=== PATIENT | female | born 1995 | race Caucasian/White ===

== ENCOUNTER 2018-01-31 08:42 | Day surgery (SDC) | payer BC ==
[2018-01-31] MEDS ORDERED: diphenhydrAMINE 50 MG/ML VIAL ONE (09:30)
[2018-01-31 09:31] LABS: #Basophils 0.1 thou/uL (0.0-0.2); #Eosinphils 0.1 thou/uL (0.0-0.7); #Lymphocytes 1.4 thou/uL (1.20-3.40); #Monocytes 0.4 thou/uL (0.11-0.59); #Neutrophils 6.4 thou/uL (1.40-6.50); %Basophils 0.8 % (0.0-1.0); %Eosinophils 0.7 % (0.0-10.0); %Lymphocytes 17.1 % (21.0-51.0); %Neutrophils 76.4 % (42.0-75.0); Hemoglobin 11.5 g/dL (12.0-16.0); Mean Corpuscular HGB CONC 34.6 g/dL (32.0-36.0); Mean Corpuscular Hemoglobin 29.9 pg (27.0-31.0); Mean Corpuscular Volume 86.4 fl (81.0-99.0); Mean Platelet Volume 9.6 fL (7.4-10.4); Platelet Count 190 thou/uL (130-400); RBC Distribution Width 11.6 % (11.5-14.5); Red Blood Cell (RBC) Count 3.84 mill/uL (4.20-5.40); White Blood Cell (WBC) Count 8.3 thou/uL (4.8-10.8)
[2018-01-31 09:46] LABS: ALT (SGPT) 14 U/L (8-55); AST (SGOT) 15 U/L (5-34); Albumin 3.5 g/dL (3.5-5.0); Alkaline Phosphatase 60 U/L (40-150); Anion Gap 13 mmol/L (10-20); BUN (Urea Nitrogen) 6 mg/dL (7.0-18.7); Bilirubin, Total 0.2 mg/dL (0.2-1.2); Calc. Creatinine Clearance 0 mL/min (70-130); Calcium 8.7 mg/dL (7.8-10.44); Carbon Dioxide 20 mmol/L (22-29); Chloride 107 mmol/L (98-107); Estimated GFR-MDRD Greater than 90; Globulin 2.8 g/dL (2.4-3.5); Glucose 98 mg/dL (70-105); Lipase 19 U/L (8-78); Potassium 3.4 mmol/L (3.5-5.1); Protein, Total 6.3 g/dL (6.0-8.3); Sodium 137 mmol/L (136-145)
[2018-01-31 10:54] VITALS: BP 121/56; TEMP 98.9; BMI 26.9
[2018-01-31] MEDS ORDERED: Lidocaine 2% Viscous Solution 10 ML, Aluminum & Magnesium Hydroxide 30 ML SSW SCH ×2 (12:00)
--- NOTE | 2018-01-31 12:11 | PRG ---
DATE OF SERVICE: 01/31/2018 OB ER ENCOUNTER PRIMARY OB: Out of town in [place]. CHIEF COMPLAINT: Nausea, vomiting, abdominal pain. HISTORY OF PRESENT ILLNESS: The patient is a 22-year-old G3, P2 female with an intrauterine pregnanc y at 24 weeks who is in town for the . Patient reports that she woke up this morning w ith a sharp epigastric pain that prompted several episodes of vomiting. The patient reports that the vomiting relieved some of her pain and discomfort, but has come here for evaluation. The patient do es admit she was up about 4 in the morning, eating various kinds of snack foods and other foods such as crayfish, shrimp, chips and dips and hotdogs. The patient reports currently her pain is much bett er. She denies any uterine contractions. She denies vaginal bleeding. She denies fever or illness. She does report she had some diarrhea yesterday after time of constipation. 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 PAST MEDICAL HISTORY: Negative. PAST SURGICAL HISTORY: Includes liposuction. ALLERGIES: AZITHROMYCIN. MEDICATIONS: vitamins. SOCIAL HISTORY: Denies drug, alcohol or tobacco use. REVIEW OF SYSTEMS: Patient denies fever, fall. She reports periodic headaches with the . Reports some chest pain, shortness of breath, nausea and vomiting with the episodes this morning, but has since resolved. Denies constipation. Reports had an episode of constipation recently with tere hamilton to follow. Denies any current rashes. Denies any vaginal bleeding or leakage of significant fl uid. She is having discharge that has been going for several weeks, so she is planning on consulting with her OB tomorrow. She denies any urinary urgency. PHYSICAL EXAMINATION: VITAL SIGNS: Blood pressure 121/56, heart rate of 90, respiratory rate of 18, satting 100% on room a ir, and temperature 98.9. GENERAL: She appears to be in no acute distress. She is alert and oriented, cooperative and pleasan t to interact with. HEAD: Normocephalic, atraumatic. LUNGS: Clear to auscultation bilaterally. HEART: Has regular rate and rhythm. ABDOMEN: Soft. She has little bit of epigastric discomfort, but mild and she has no suprapubic tend erness. No lower pelvic tenderness or other abdominal tenderness. EXTREMITIES: Nontender, nonedematous. GENITOURINARY: Exam has been deferred. heart tracing demonstrates a baseline in the 130s with moderate long-term variability, appropriate for 24-week gestation. LABORATORY DATA: Laboratory work has been ordered from the ER evaluation demonstrating white count o f 8.3, hemoglobin of 11.5, hematocrit 33.2, and platelets of 190,000. Sodium of 137, potassium of 3. 4, chloride of 107, BUN of 6, creatinine of 0.48, calcium of 8.7, and glucose of 98. LFTs within nor mal limits. Lipase of 19. ASSESSMENT AND PLAN: The patient is a 22-year-old female with an intrauterine at 24 weeks who has experienced episodic nausea, vomiting and abdominal pain, likely secondary to a night full of eating and she is feeling much better now after vomiting. We are giving her a GI cocktail to see if the remaining discomfort will resolve and the patient will be discharged home. She has no evidence of labor. Fetus is reassuring. She has an appointment to follow up with her OB tomorrow.
== END 2018-01-31 12:35 | disposition home or self-care (01) ==
LOC: SCSER 08:42 → L&D/OP 10:33
PROVIDERS: ATTEND Obstetrics & Gynecology
DX: O99.89 Other specified diseases and conditions complicating pregnancy, childbirth and the puerperium (principal); R11.2 Nausea with vomiting, unspecified; R10.9 Unspecified abdominal pain; Z3A.24 24 weeks gestation of pregnancy; Z79.899 Other long term (current) drug therapy; Z88.1 Allergy status to other antibiotic agents
CPT/HCPCS: 80053; 83690; 85025; J1200

== ENCOUNTER 2020-10-30 21:22 | Emergency (ER) | payer SELFPAY | END 2020-10-30 23:41 | disposition home or self-care (01) | LOC: ERS 21:22 | DX: J02.9 Acute pharyngitis, unspecified (principal); J45.909 Unspecified asthma, uncomplicated | CPT/HCPCS: 99281 ==

== ENCOUNTER 2021-05-12 17:41 | Observation (INO) | payer OTHER, SELFPAY ==
[~2021-05-12 17:41] MED LIST: Iopamidol-370 76% 500 ML 1 ML ONE
[2021-05-12] MEDS ORDERED: Acetaminophen 500 MG TAB ONE (18:18)
[2021-05-12 18:21] LABS: #Lymphocytes 1.7 thou/uL (1.20-3.40); #Neutrophils 8.9 thou/uL (1.40-6.50); %Basophils 0.3 % (0.0-1.0); %Lymphocytes 14.9 % (21.0-51.0); %Monocytes 8.5 % (0.0-10.0); %Neutrophils 76.2 % (42.0-75.0); Hemoglobin 12.4 g/dL (12.0-16.0); Mean Corpuscular HGB CONC 33.5 g/dL (32.0-36.0); Mean Corpuscular Hemoglobin 30.7 pg (27.0-31.0); Mean Corpuscular Volume 91.6 fL (78.0-98.0); Platelet Count 222 thou/uL (130-400); Red Blood Cell (RBC) Count 4.04 mill/uL (4.20-5.40); White Blood Cell (WBC) Count 11.6 thou/uL (4.8-10.8)
[2021-05-12 18:22] LABS: BHCG - Serum Negative (NEGATIVE); Pregs Control Background? CLEAR/WHITE (CLR/WHITE); Pregs Control Bar Appear? YES (CONTROL BAR)
[2021-05-12 18:32] LABS: INR-International Normal Ratio 1.1; PTT 30.9 sec (22.9-36.1); Prothrombin Time 14.4 sec (12.0-14.7)
[2021-05-12 18:43] LABS: ALT (SGPT) 15 U/L (8-55); AST (SGOT) 16 U/L (5-34); Albumin 4.6 g/dL (3.5-5.0); Alkaline Phosphatase 66 U/L (40-110); Anion Gap 14 mmol/L (10-20); BUN (Urea Nitrogen) 7 mg/dL (7.0-18.7); Bilirubin, Total 0.8 mg/dL (0.2-1.2); Calc. Creatinine Clearance 0 mL/min (70-130); Calcium 9.7 mg/dL (7.8-10.44); Carbon Dioxide 24 mmol/L (22-29); Chloride 99 mmol/L (98-107); Globulin 3.5 g/dL (2.4-3.5); Glucose 104 mg/dL (70-105); Lipase 15 U/L (8-78); Potassium 3.6 mmol/L (3.5-5.1); Protein, Total 8.1 g/dL (6.0-8.3); Sodium 133 mmol/L (136-145)
[2021-05-12 19:44] LABS: Bacteria/HPF 4+ HPF (None Seen); Bilirubin Negative (Negative); Blood, Urine Negative (Negative); Clarity Turbid (Clear); Glucose, Urine (Dipstick) Normal (Negative); Ketone, Urine Negative (Negative); Leukocyte 500 Leu/uL (Negative); Nitrite 2+ (Negative); Protein, Urine (Dipstick) 10 mg/dL (Neg-Trace); RBC/HPF 0-3 HPF (0-3); Renal Epithelial 0-3 HPF (None Seen); Specific Gravity, Urine 1.023 (1.002-1.036); Urobilinogen Normal mg/dL (Less than 2); WBC/HPF Greater than 50 HPF (0-3); pH, Urine 7.5 (5.0-9.0)
[2021-05-12] MEDS ORDERED: cefTRIAXone\\ROCEPHIN 1 GM VIAL ONE (20:16)
[2021-05-12 20:23] LABS: SARS-CoV-2 NAA Rapid Test Not Detected (NotDetected)
[2021-05-12] MEDS ORDERED: Vancomycin 1 GM/200 ML BAG ONE (20:56)
[2021-05-12] MEDS ORDERED: diphenhydrAMINE 50 MG/ML VIAL ONE (21:53)
[2021-05-12 23:54] VITALS: BMI 27.8
[2021-05-13] MEDS ORDERED: Acetaminophen 325 MG TAB PO PRN (01:15)
[2021-05-13] MEDS ORDERED: Sodium Chloride 0.9% 1,000 ML IV SCH ×3 (01:15→08:30)
[2021-05-13] MEDS ORDERED: Ondansetron ODT 4 MG TAB SL PRN (01:15)
[2021-05-13] MEDS ORDERED: Ondansetron PF 4 MG/2 ML Vial IVP PRN ×2 (01:15→02:27)
[2021-05-13] MEDS ORDERED: Albuterol Sulfate 2.5 mg/3 ml Neb NEB PRN (02:33)
[2021-05-13] MEDS: Cefepime 2 GM in Sodium Chloride 0.9% 100 ML IVPB SCH ×2 (02:54→15:22)
[2021-05-13 05:43] LABS: #Neutrophils 6.2 thou/uL (1.40-6.50); %Basophils 0.4 % (0.0-1.0); %Eosinophils 0.1 % (0.0-10.0); %Lymphocytes 21.9 % (21.0-51.0); %Monocytes 10.9 % (0.0-10.0); %Neutrophils 66.8 % (42.0-75.0); Hemoglobin 10.9 g/dL (12.0-16.0); Mean Corpuscular HGB CONC 32.1 g/dL (32.0-36.0); Mean Corpuscular Hemoglobin 29.6 pg (27.0-31.0); Mean Corpuscular Volume 92.1 fL (78.0-98.0); Mean Platelet Volume 8.8 fL (7.4-10.4); Platelet Count 204 thou/uL (130-400); RBC Distribution Width 11.9 % (11.5-14.5); Red Blood Cell (RBC) Count 3.69 mill/uL (4.20-5.40); White Blood Cell (WBC) Count 9.3 thou/uL (4.8-10.8)
[2021-05-13 06:06] LABS: Anion Gap 10 mmol/L (10-20); BUN (Urea Nitrogen) 5 mg/dL (7.0-18.7); Calc. Creatinine Clearance 142 mL/min (70-130); Calcium 8.6 mg/dL (7.8-10.44); Carbon Dioxide 24 mmol/L (22-29); Chloride 105 mmol/L (98-107); Glucose 99 mg/dL (70-105); Potassium 3.9 mmol/L (3.5-5.1); Sodium 135 mmol/L (136-145)
[2021-05-13] MEDS: Acetaminophen 325 MG TAB PO PRN ×2 (08:38→15:21)
[2021-05-13] MEDS ORDERED: Famotidine 20 MG TAB PO SCH (09:00)
[2021-05-13 16:10] VITALS: TEMP 98.8
[2021-05-13 19:54] VITALS: BP 103/66
[2021-05-13 23:55] LABS: HBCM Index 0.06 S/CO (0-0.79); HIV (1/2) Antibody/Antigen Non-Reactive (NonReactive); HIV 1/2 INDEX 0.11 S/CO (<1.00); Hep A IgM AB Non-Reactive (NonReactive); Hep A IgM S/CO 0.08 S/CO (0-0.79); Hep B Surf Ag Non-Reactive S/CO (NonReactive); Hep C IgG Ab Non-Reactive (NonReactive); Hep C Index 0.05 S/CO (0-0.79); Hepatitis B Core IgM Abs Non-Reactive (NonReactive)
== END 2021-05-13 20:00 | disposition home or self-care (01) ==
LOC: ERS 17:41 → SJJU 20:37
PROVIDERS: ADMIT Internal Medicine; ATTEND Internal Medicine
DX: N39.0 Urinary tract infection, site not specified (principal); J45.20 Mild intermittent asthma, uncomplicated; R73.03 Prediabetes; F17.290 Nicotine dependence, other tobacco product, uncomplicated; Z88.1 Allergy status to other antibiotic agents; Z20.822 Contact with and (suspected) exposure to COVID-19
CPT/HCPCS: 0240U; 36415; 74177; 80048; 80053; 80074; 81003; 81015; 83605; 83690; 84703; 85025; 85610; 85730; 87040; 87077; 87086; 87186; 87389; 94760; 96365; 96366; 96375; 96376; G0378; J0692; J0696; J1200; J2405; J3370; J3490; Q9967

== ENCOUNTER 2023-03-01 21:41 | Emergency (ER) | payer MEDICAID, OTHER, SELFPAY ==
[2023-03-01] MEDS ORDERED: Ondansetron ODT 4 MG TAB ONE (22:44)
[2023-03-01] MEDS ORDERED: Acetaminophen 500 MG TAB ONE (22:44)
[2023-03-01 23:45] LABS: SARS-CoV-2 NAA Rapid Test Not Detected (NotDetected)
[2023-03-02 00:42] LABS: #Lymphocytes 1.1 thou/uL (1.20-3.40); #Monocytes 0.3 thou/uL (0.11-0.59); #Neutrophils 4.4 thou/uL (1.40-6.50); %Basophils 0.3 % (0.0-1.0); %Eosinophils 0.7 % (0.0-10.0); %Lymphocytes 18.5 % (21.0-51.0); %Monocytes 4.4 % (0.0-10.0); %Neutrophils 76.1 % (42.0-75.0); Hemoglobin 12.7 g/dL (12.0-16.0); Mean Corpuscular HGB CONC 34.3 g/dL (32.0-36.0); Mean Corpuscular Hemoglobin 31.3 pg (27.0-31.0); Mean Corpuscular Volume 91.3 fl (78.0-98.0); Mean Platelet Volume 9.3 fL (7.4-10.4); Platelet Count 171 10x3/uL (130-400); RBC Distribution Width 11.4 % (11.5-14.5); Red Blood Cell (RBC) Count 4.05 mill/uL (4.20-5.40); White Blood Cell (WBC) Count 5.8 10x3/uL (4.8-10.8)
[2023-03-02 00:58] LABS: ALT (SGPT) 14 U/L (8-55); AST (SGOT) 13 U/L (5-34); Albumin 4.4 g/dL (3.5-5.0); Alkaline Phosphatase 53 U/L (40-110); Anion Gap 13 mmol/L (10-20); BUN (Urea Nitrogen) 8 mg/dL (7.0-18.7); Bilirubin, Total 0.6 mg/dL (0.2-1.2); Calc. Creatinine Clearance 0 mL/min (70-130); Carbon Dioxide 21 mmol/L (22-29); Chloride 107 mmol/L (98-107); Estimated GFR 122; Globulin 2.5 g/dL (2.4-3.5); Glucose 98 mg/dL (70-105); Potassium 3.7 mmol/L (3.5-5.1); Protein, Total 6.9 g/dL (6.0-8.3); Sodium 137 mmol/L (136-145)
[2023-03-02 01:44] LABS: Bilirubin Negative (Negative); Blood, Urine Negative (Negative); Clarity Clear (Clear); Glucose, Urine (Dipstick) Normal (Negative); Ketone, Urine Negative (Negative); Leukocyte Negative Leu/uL (Negative); Nitrite Negative (Negative); Protein, Urine (Dipstick) Negative (Neg-Trace); Specific Gravity, Urine 1.012 (1.002-1.036); Urobilinogen Normal mg/dL (Less than 2)
== END 2023-03-02 01:55 | disposition home or self-care (01) ==
LOC: ERS 21:41
DX: J01.90 Acute sinusitis, unspecified (principal); R50.9 Fever, unspecified; Z20.822 Contact with and (suspected) exposure to COVID-19
CPT/HCPCS: 36415; 71045; 80053; 81003; 85025; Q0162

== ENCOUNTER 2024-08-24 20:41 | Emergency (ER) | payer SELFPAY ==
[2024-08-24] MEDS ORDERED: methylPREDNISolone Sod Succ/PF 125 MG/2 ML VIAL ONE (21:58)
[2024-08-24] MEDS ORDERED: Famotidine 20 MG TAB ONE (21:58)
[2024-08-24] MEDS ORDERED: diphenhydrAMINE 25 MG CAP ONE (21:58)
== END 2024-08-25 | disposition home or self-care (01) ==
LOC: ERS 20:41
DX: T78.40XA Allergy, unspecified, initial encounter (principal)
CPT/HCPCS: 96372; 99282; J2919

== ENCOUNTER 2024-08-26 13:38 | Emergency (ER) | payer SELFPAY ==
[2024-08-26] MEDS ORDERED: diphenhydrAMINE 25 MG CAP ONE ×2 (14:17→15:50)
[2024-08-26] MEDS ORDERED: predniSONE 20 MG TAB ONE (14:17)
[2024-08-26] MEDS ORDERED: Famotidine 20 MG TAB ONE ×2 (14:17→15:50)
[2024-08-26] MEDS ORDERED: Dexamethasone 10 MG/ML VIAL ONE (15:50)
== END 2024-08-26 16:05 | disposition home or self-care (01) ==
LOC: ERS 13:38
DX: T78.1XXA Other adverse food reactions, not elsewhere classified, initial encounter (principal); L50.9 Urticaria, unspecified; F17.290 Nicotine dependence, other tobacco product, uncomplicated; J45.909 Unspecified asthma, uncomplicated; X58.XXXA Exposure to other specified factors, initial encounter; Z55.6 Problems related to health literacy; Z79.899 Other long term (current) drug therapy
CPT/HCPCS: 96372; 99283; J1100; J7512